=== PATIENT | female | born 1960 | race Caucasian/White ===

== ENCOUNTER 2018-08-24 17:32 | Emergency (ER) | payer OTHER ==
[~2018-08-24] VITALS: Ht 175.3 cm; Wt 90.5 kg
[2018-08-24] MEDS ORDERED: AMLO5TAB6 (18:18)
[2018-08-24] MEDS ORDERED: LISI-672 (18:18)
--- NOTE | 2018-08-24 19:08 | REP ---
Clinical: Trauma . Technique: Axial noncontrast images from the skull base to the thoracic inlet with coronal and sagittal re-formations Findings: Straightening of normal lordosis is nonspecific and may be related to positioning versus pain/spasm. Moderate/early advanced focal degenerative disc osteophyte complex at the C5-6 and C6-7 noted. Alignment is maintained. There is no evidence for acute fracture / compression injury or subluxation. Posterior elements and spinous processes are intact. Paravertebral soft tissues are within normal limits. Impression: Focal degenerative disc osteophyte complex at C5 - C7 No evidence for acute pathology or trauma/injury. Electronically Signed by Jim Sinha MD 08/24/2018 07:01 P
--- NOTE | 2018-08-24 19:19 | REP ---
Clinical: Trauma. Fall . Comparison: None . Findings: The ventricles, sulci, and cisterns are normal in position and appearance. Lassiter-white differentiation is maintained. No acute intracranial hemorrhage, mass/mass effect, pathology or trauma/injury. No evidence for acute infarction. No extra-axial fluid collection. Calvarium is intact. Paranasal sinuses and mastoid air cells are clear. Impression: Normal noncontrast head CT. No evidence for acute intracranial pathology or trauma/injury. Electronically Signed by Jim Sinha MD 08/24/2018 07:12 P
--- NOTE | 2018-08-24 19:27 | REP ---
Clinical: Trauma . Comparison: None . Technique: PA and lateral. Findings: The mediastinum and cardiac silhouette are normal. The lung seo are clear and without acute consolidation, effusion, or pneumothorax. Skeletal structures appear intact without obvious acute trauma. Impression: 1. No acute cardiopulmonary process. Electronically Signed by Jim Sinha MD 08/24/2018 07:18 P
--- NOTE | 2018-08-24 19:29 | REP ---
Clinical: Trauma. Technique: AP, lateral, bilateral oblique views of the right and left wrist . Findings: The carpal bones, surrounding osseous structures, soft tissues, and joint spaces are normal. There is no evidence for acute fracture or dislocation. No subcutaneous emphysema or radiodense foreign body. Impression: No obvious acute fracture or dislocation appreciated. Electronically Signed by Jim Sinha MD 08/24/2018 07:20 P
--- NOTE | 2018-08-24 19:32 | REP ---
Clinical: Trauma. Technique: AP, lateral, bilateral oblique views of the left knee. Findings: There is evidence for a diffuse swelling and suspected suprapatellar effusion. Moderate tricompartmental osteoarthritic degenerative changes are appreciated and limit evaluation. Subtle acute injury/fracture cannot be excluded. If the patient remains symptomatic consider CT for further investigation. Impression: Swelling and suspected suprapatellar effusion. Degenerative changes limit evaluation and subtle injury cannot be excluded. Electronically Signed by Jim Sinha MD 08/24/2018 07:23 P
[2018-08-24 19:35] LABS: HEMATOCRIT 43.8 % (36.0-47.0); HEMOGLOBIN 14.8 g/dl (12.0-15.5); MEAN CORPUSCULAR HEMOGLOBIN 29.1 pg (27.0-33.0); MEAN CORPUSCULAR HGB CONC 33.8 g/dl (32.0-36.5); MEAN CORPUSCULAR VOLUME 86.2 fl (80.0-96.0); PLATELET COUNT, AUTOMATED 232 10^3/uL (150-450); RED BLOOD COUNT 5.08 10^6/uL (4.00-5.40); WHITE BLOOD COUNT 8.1 10^3/uL (4.0-10.0)
[2018-08-24 20:13] LABS: ALBUMIN 3.7 GM/DL (3.2-5.2); ALT/SGPT 25 U/L (12-78); BILIRUBIN,DIRECT < 0.1 MG/DL (0.0-0.2); BILIRUBIN,TOTAL 0.5 MG/DL (0.2-1.0); BLOOD UREA NITROGEN 13 MG/DL (7-18); CALCIUM LEVEL 8.7 MG/DL (8.5-10.1); CARBON DIOXIDE LEVEL 26 MEQ/L (21-32); CHLORIDE LEVEL 108 MEQ/L (98-107); CREATININE FOR GFR 0.71 MG/DL (0.55-1.30); GLOMERULAR FILTRATION RATE > 60.0 (>51); GLUCOSE, FASTING 94 MG/DL (70-100); POTASSIUM SERUM 4.3 MEQ/L (3.5-5.1); SODIUM LEVEL 140 MEQ/L (136-145); TOTAL PROTEIN 6.7 GM/DL (6.4-8.2)
[2018-08-24] MEDS ORDERED: KETOROLAC 30 MG/ML VIAL (J1885) IV ONE (20:15)
[2018-08-24] MEDS ORDERED: CYCLOBENZAPRINE 5MG TABLET PO ONE (21:15)
[2018-08-24] MEDS ORDERED: IBUP-1114 PO ×2 (21:16→21:30)
[2018-08-24] MEDS ORDERED: CYCL5TAB PO ×2 (21:16→21:30)
[2018-08-24 21:35] VITALS: BP 165/75
--- NOTE | 2018-08-25 21:58 | ECGEPIP ---
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
== END 2018-08-24 21:37 | disposition home or self-care (01) ==
LOC: M ED 17:32
DX: S80.02XA Contusion of left knee, initial encounter (principal); S60.211A Contusion of right wrist, initial encounter; S60.212A Contusion of left wrist, initial encounter; I49.3 Ventricular premature depolarization; W01.10XA Fall on same level from slipping, tripping and stumbling with subsequent striking against unspecified object, initial encounter; Y92.89 Other specified places as the place of occurrence of the external cause; Y93.9 Activity, unspecified; Y99.0 Civilian activity done for income or pay; I10 Essential (primary) hypertension; M25.78 Osteophyte, vertebrae; Z79.899 Other long term (current) drug therapy; Z88.1 Allergy status to other antibiotic agents; Z88.8 Allergy status to other drugs, medicaments and biological substances
CPT/HCPCS: 70450; 71046; 72125; 73110; 73564; 80048; 80076; 83735; 84443; 85027; 93005; 96374; 99284; J1885

== ENCOUNTER 2018-12-26 10:36 | Inpatient (IN) | payer OTHER ==
[~2018-12-26] VITALS: Ht 177.8 cm; Wt 130.4 kg
[2018-12-26] VITALS (7 sets, daily range): BP systolic 111–143; BP diastolic 55–93
[2018-12-26] MEDS: lisinopriL 10 MG TAB PO SCH (09:00)
[~2018-12-26 10:36] MED LIST: AMLO5TAB6 PO; CYCL5TAB PO; IBUP-1114 PO; LISI-672 PO
[2018-12-26] MEDS ORDERED: METO1TAB7 PO (10:47)
[2018-12-26] MEDS ORDERED: LORA-674 PO (10:47)
[2018-12-26] MEDS ORDERED: TRAM50TA2 PO (10:47)
[2018-12-26] MEDS ORDERED: APAP325T4 PO (10:47)
[2018-12-26 11:35] LABS: BASO # 0.1 10^3/uL (0.0-0.2); BASO % 0.6 % (0.0-1.0); EOS # 0.1 10^3/uL (0.0-0.50); EOS % 1.4 % (0.0-3.0); HEMATOCRIT 36.2 % (36.0-47.0); HEMOGLOBIN 12.1 g/dl (12.0-15.5); LYMPH # 1.1 10^3/uL (1.5-4.5); LYMPH % 13.4 % (24.0-44.0); MEAN CORPUSCULAR HEMOGLOBIN 29.7 pg (27.0-33.0); MEAN CORPUSCULAR HGB CONC 33.4 g/dl (32.0-36.5); MEAN CORPUSCULAR VOLUME 88.7 fl (80.0-96.0); MONO # 0.4 10^3/uL (0.0-0.8); NEUTROPHILS # 6.7 10^3/uL (1.8-7.7); NEUTROPHILS % 79.2 % (36.0-66.0); PLATELET COUNT, AUTOMATED 209 10^3/uL (150-450); RED BLOOD COUNT 4.08 10^6/uL (4.00-5.40); WHITE BLOOD COUNT 8.4 10^3/uL (4.0-10.0)
[2018-12-26] MEDS: NS 1,000 ML IV SCH ×2 (11:40→20:27)
[2018-12-26 11:47] LABS: INR 1.07; PROTHROMBIN TIME 13.6 SECONDS (11.8-14.0)
[2018-12-26 11:59] LABS: BLOOD UREA NITROGEN 16 MG/DL (7-18); CALCIUM LEVEL 8.6 MG/DL (8.5-10.1); CARBON DIOXIDE LEVEL 28 MEQ/L (21-32); CHLORIDE LEVEL 107 MEQ/L (98-107); CPK CREATINE PHOSPHOKINASE 58 U/L (26-192); CREATININE FOR GFR 0.73 MG/DL (0.55-1.30); GLOMERULAR FILTRATION RATE > 60.0 (>51); GLUCOSE, FASTING 101 MG/DL (70-100); MB/CK RELATIVE INDEX 1.72 (< OR =4); SODIUM LEVEL 142 MEQ/L (136-145); TROPONIN I 0.04 NG/ML (< 0.10)
--- NOTE | 2018-12-26 13:41 | REP ---
Clinical: Right-sided pain status post cardiac ablation with vascular access via the right inguinal canal. Technique: Lassiter scale and color Doppler evaluation using linear high frequency transducer. Findings: Ultrasound examination of the right lower extremity deep venous structures from the common femoral vein to the popliteal vein demonstrates normal compressibility flow and wave patterns in response to respiration and augmentation. There is no evidence for deep venous thrombosis. There is a 2.1 cm suspected pseudoaneurysm adjacent to the proximal superficial femoral artery demonstrating swirling flow and 2.8 mm neck. Impression: No evidence for deep venous thrombosis. Findings suggest 2.1 cm pseudoaneurysm from the proximal superficial femoral artery. Electronically Signed by Jim Sinha MD 12/26/2018 01:33 P
[2018-12-26] MEDS ORDERED: dexameTHASONE 4 MG/ML 1ML VIAL (J1100) As Ordered ONE (15:35)
[2018-12-26] MEDS ORDERED: LIDOCAINE 2% INJ 100 MG/5 ML SDV (FOR ANES.) As Ordered ONE (15:35)
[2018-12-26] MEDS ORDERED: propofoL 200 MG/20 ML VIAL As Ordered ONE (15:35)
[2018-12-26] MEDS ORDERED: ONDANSETRON 4MG/2ML VIAL (J2405) As Ordered ONE (15:35)
--- NOTE | 2018-12-26 15:35 | ECGEPIP ---
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
[2018-12-26] MEDS ORDERED: fentaNYL 100 MCG/2 ML INJECTION (J3010) As Ordered ONE (15:36)
[2018-12-26] MEDS ORDERED: MIDAZOLAM INJ 2 MG/2 ML VIAL (J2250) As Ordered ONE (15:36)
[2018-12-26] MEDS ORDERED: CLOB0.0548 TOP (15:37)
[2018-12-26] MEDS ORDERED: VAGI10TA PV (15:37)
[2018-12-26] MEDS ORDERED: CYCL5TAB PO (15:37)
[2018-12-26] MEDS ORDERED: CLOBETASOL PROPIONATE EMOLLIENT 0.05% CR 60 GM TOP PRN (16:00)
[2018-12-26] MEDS ORDERED: ACETAMINOPHEN TAB 650MG DOSE (2X325MG) PO PRN (16:00)
[2018-12-26] MEDS ORDERED: THROMBIN SOLN 5,000 UNITS VIAL As Ordered ONE ×2 (16:06→16:27)
[2018-12-26] MEDS ORDERED: LIDOCAINE 1% SDV INJ 30 ML VIAL As Ordered ONE (16:10)
[2018-12-26] MEDS ORDERED: BUPIVACAINE HCL 0.5% 30 ML VIAL As Ordered ONE (16:10)
[2018-12-26] MEDS ORDERED: fentaNYL 100 MCG/2 ML INJECTION (J3010) IV PRN (17:00)
[2018-12-26] MEDS ORDERED: NORCO, ANEXSIA 5/325MG TABLET (HYDROcodone/ACETAMINOPHEN) PO PRN (17:00)
[2018-12-26] MEDS ORDERED: ONDANSETRON 4MG/2ML VIAL (J2405) IV PRN (17:00)
[2018-12-26] MEDS ORDERED: LR 1,000 ML IV SCH (17:00)
[2018-12-26] MEDS ORDERED: NORCO, ANEXSIA 5/325MG TABLET (HYDROcodone/ACETAMINOPHEN) As Ordered ONE (17:04)
--- NOTE | 2018-12-26 17:31 | HPE ---
DATE OF ADMISSION: 12/26/2018 CHIEF COMPLAINT: Worsening bruising on right lower extremity after a recent cardiac catheterization for cardiac ablation. HISTORY OF PRESENT ILLNESS: This is a 58-year-old female with past medical history of profound premature ventricular contractions (PVCs) who is status post an ablation procedure this past Friday via cardiac catheterization in [place], who has experienced worse right lower extremity bruising and pain. She reports that she has recently been diagnosed with significant PVCs, up to 1100 per hour. It was decided that she should undergo an ablation procedure and she had that done this past Friday in [place]. Immediately after discharge, she experienced worsening bruising. Apparently, she was kept overnight just for one night after the cardiac catheterization and she already had some bruising, which has worsened. She came here for further evaluation. She has no other complaints. REVIEW OF SYSTEMS: Negative in 14 out of 14 systems except as noted above. PAST MEDICAL HISTORY: 1. History of PVCs status post ablation on Friday. 2. Hypertension. 3. Obstructive sleep apnea (SAIDA). 4. History of methicillin-resistant Staphylococcus aureus (MRSA). PAST SURGICAL HISTORY: She has a history of: 1. Rhinoplasty. 2. Hernia surgery. 3. Hysterectomy. HOME MEDICATIONS; She is on: - Tylenol 650 mg daily as needed for pain - Flexeril 5 mg three times a day as needed for spasms - loratadine 10 mg by mouth daily as needed for allergies - tramadol 50 mg daily as needed for pain - amlodipine 5 mg by mouth at bedtime - clobetasol cream 0.05% topical twice a day as needed for itching - lisinopril 30 mg by mouth daily - metoprolol 50 mg extended release by mouth daily ALLERGIES: She is allergic to CEPHALOSPORINS AND TETRACYCLINE. SOCIAL HISTORY: She lives with her sister. She is . She has one adult child who is 37. No smoking, alcohol, drugs. FAMILY HISTORY: No significant family history of vascular problems. PHYSICAL EXAMINATION: VITAL SIGNS: Currently, she is afebrile to 97.4, blood pressure 128/85, pulse is 63, respiratory rate 16, saturating 95% on room air. GENERAL: She is in no acute distress and breathing comfortably. HEENT EXAM: Oropharynx clear. CARDIOVASCULAR: Regular rate and rhythm. No murmurs, rubs or gallops. LUNGS: Clear to auscultation bilaterally. ABDOMEN: Obese, soft, nontender. EXTREMITIES: She has got extensive right leg ecchymosis from her thigh extending down to near her knee and this area is quite tender to touch. I do not palpate any mass in the inguinal area. No clubbing, cyanosis or edema. NEUROLOGIC: She is alert and oriented times three, follows simple commands. No focal neurologic deficits. SKIN: Ecchymosis, as described above. PSYCHIATRIC: Mood stable. LABORATORIES: Reveal a complete blood count (CBC) which is unremarkable, with a white count of 8.4. Chemistry: Creatinine of 0.73, sodium of 142. IMAGING: She has got a vascular ultrasound which shows no evidence of deep venous thrombosis (DVT), but a 2.1 cm pseudoaneurysm from the proximal superficial femoral artery. ASSESSMENT AND PLAN: This is a 58-year-old female with past medical history of significant premature ventricular contractions (PVCs), now improved status post ablation about a week ago, hypertension, obstructive sleep apnea (SAIDA), who presents with chief complaint of worsening right lower extremity ecchymosis, found to have a pseudoaneurysm. PROBLEMS: 1. Postcardiac catheterization pseudoaneurysm. This is likely secondary to her recent cardiac catheterization. Dr. Olivarez has already been called from the emergency room. He is taking her to the operating room (OR) for thrombin infusion. We will admit her so that vascular surgery can continue to follow this patient. 2. Hypertension. Continue home amlodipine and lisinopril and metoprolol. 3. Deep venous thrombosis (DVT) prophylaxis. I will hold off on DVT prophylaxis for now until postop. 4. Patient is FULL CODE.
[2018-12-26] MEDS: amLODIPine 5 MG TAB PO SCH (21:00)
[2018-12-26] MEDS: METOPROLOL SUCC (TopROL XL) 50MG **XL** TAB PO SCH (22:19)
[2018-12-27] VITALS (7 sets, daily range): BP systolic 127–137; BP diastolic 71–90; O2SAT 93
[2018-12-27 07:23] LABS: ALBUMIN 3.3 GM/DL (3.2-5.2); ALT/SGPT 24 U/L (12-78); BILIRUBIN,TOTAL 0.7 MG/DL (0.2-1.0); BLOOD UREA NITROGEN 13 MG/DL (7-18); CALCIUM LEVEL 8.4 MG/DL (8.5-10.1); CARBON DIOXIDE LEVEL 28 MEQ/L (21-32); CHLORIDE LEVEL 107 MEQ/L (98-107); CREATININE FOR GFR 0.68 MG/DL (0.55-1.30); GLOMERULAR FILTRATION RATE > 60.0 (>51); GLUCOSE, FASTING 123 MG/DL (70-100); MAGNESIUM LEVEL 2.1 MG/DL (1.8-2.4); POTASSIUM SERUM 4.2 MEQ/L (3.5-5.1); SODIUM LEVEL 141 MEQ/L (136-145); TOTAL PROTEIN 6.3 GM/DL (6.4-8.2)
[2018-12-27] MEDS: NS 1,000 ML IV SCH ×2 (07:23→17:35)
[2018-12-27] MEDS: METOPROLOL SUCC (TopROL XL) 50MG **XL** TAB PO SCH (08:41)
[2018-12-27] MEDS: lisinopriL 10 MG TAB PO SCH (08:41)
--- NOTE | 2018-12-27 13:27 | REP ---
Clinical: History of pseudoaneurysm status post thrombin injection. Technique: Real time harrington scale and color Doppler evaluation using linear high frequency transducer. Findings: Directed ultrasound examination of the right groin demonstrates a 2.1 x 1.0 x 2.8 cm hypoechoic avascular collection consistent with the previously noted pseudoaneurysm now appearing thrombosed and without flow. 6.5 x 1.4 x 2.7 cm complex avascular fluid collection is also identified more superficially at the right groin which is consistent with a small hematoma. Impression: 1. Previously noted pseudoaneurysm appears thrombosed and without flow. 2. Superficial hematoma. Electronically Signed by Jim Sinha MD 12/27/2018 01:18 P
--- NOTE | 2018-12-27 18:39 | IPNPDOC ---
Date Seen The patient was seen on 12/27/18. Progress Note SUBJECTIVE: no complaints toerated procedure yesterday well OBJECTIVE PHYSICAL EXAMINATION: VITAL SIGNS: Please see below. GENERAL: NAD Ext: RLE ecchymosis resolving w less TTP #Postcardiac catheterization pseudoaneurysm #hx of PVCs sp ablation #HTN - sp thrombin yesterday - arterial study showed pseudoaneurysm appearing thrombose - Continue home amlodipine and lisinopril and metoprolol. VS, I&O, 24H, Fishbone Vital Signs/I&O Vital Signs Date Time Temp Pulse Resp B/P (MAP) Pulse Ox O2 Delivery O2 Flow Rate FiO2 12/27/18 18:00 97.7 54 15 137/75 (95) 94 12/27/18 05:01 BIPAP/CPAP I&O- Last 24 Hours up to 6 AM 12/27/18 06:00 Intake Total 2410 ml Balance 2410 ml Laboratory Data 24H LABS Laboratory Tests 2 12/27/18 06:41: Anion Gap 6L, Glomerular Filtration Rate > 60.0, Blood Urea Nitrogen 13, Creatinine 0.68, Sodium Level 141, Potassium Level 4.2, Chloride Level 107, Carbon Dioxide Level 28, Calcium Level 8.4L, Aspartate Amino Transf (AST/SGOT) 16, Alanine Aminotransferase (ALT/SGPT) 24, Alkaline Phosphatase 80, Total Bilirubin 0.7, Total Protein 6.3L, Albumin 3.3, Magnesium Level 2.1, Albumin/Globulin Ratio 1.10 CBC/BMP Laboratory Tests 12/27/18 06:41 Calcium Level 8.4 L, Aspartate Amino Transf (AST/SGOT) 16, Alanine Aminotransferase (ALT/SGPT) 24, Alkaline Phosphatase 80, Total Bilirubin 0.7, Total Protein 6.3 L, Albumin 3.3 MORIAH HAYDEN MD Dec 27, 2018 18:39
[2018-12-27] MEDS: amLODIPine 5 MG TAB PO SCH (20:39)
[2018-12-28 00:40] VITALS: O2SAT 99
[2018-12-28] MEDS: NS 1,000 ML IV SCH ×2 (03:35→12:51)
[2018-12-28 05:33] LABS: HEMATOCRIT 29.7 % (36.0-47.0); MEAN CORPUSCULAR HEMOGLOBIN 29.1 pg (27.0-33.0); MEAN CORPUSCULAR VOLUME 88.1 fl (80.0-96.0); PLATELET COUNT, AUTOMATED 196 10^3/uL (150-450); RED BLOOD COUNT 3.37 10^6/uL (4.00-5.40); WHITE BLOOD COUNT 7.4 10^3/uL (4.0-10.0)
[2018-12-28 05:38] LABS: HEMOGLOBIN 9.8 g/dl (12.0-15.5)
[2018-12-28 05:55] LABS: BLOOD UREA NITROGEN 15 MG/DL (7-18); CALCIUM LEVEL 8.1 MG/DL (8.5-10.1); CARBON DIOXIDE LEVEL 25 MEQ/L (21-32); CHLORIDE LEVEL 112 MEQ/L (98-107); CREATININE FOR GFR 0.64 MG/DL (0.55-1.30); GLOMERULAR FILTRATION RATE > 60.0 (>51); GLUCOSE, FASTING 98 MG/DL (70-100); POTASSIUM SERUM 3.9 MEQ/L (3.5-5.1); SODIUM LEVEL 142 MEQ/L (136-145)
[2018-12-28 06:00] VITALS: BP 131/71
[2018-12-28 08:43] VITALS: BP 136/82
[2018-12-28] MEDS: lisinopriL 10 MG TAB PO SCH (08:43)
[2018-12-28] MEDS: METOPROLOL SUCC (TopROL XL) 50MG **XL** TAB PO SCH (08:44)
[2018-12-28 10:00] VITALS: BP 121/71
--- NOTE | 2018-12-28 13:27 | DS.PDOC ---
Discharge Summary General Date of Admission Dec 26, 2018 at 15:53 Date of Discharge Dec 28 2018 Attending Physician: MORIAH HAYDEN MD Specialist/Consultants Involve: Aurelio Olivarez MD Discharge Summary PROCEDURES PERFORMED DURING STAY: thrombin injection on 12/26/18 ADMITTING DIAGNOSES: 1. pseudoaneurysm DISCHARGE DIAGNOSES: 1. pseudoaneurysm sp thrombin injection 2. Hx of PVCs sp pacemaker COMPLICATIONS/CHIEF COMPLAINT: Pseudoaneurysm Femoral Artery. HISTORY OF PRESENT ILLNESS: This is a 58-year-old female with past medical history of profound premature ventricular contractions (PVCs) who is status post an ablation procedure this past Friday via cardiac catheterization in [place], who has experienced worse right lower extremity bruising and pain. She reports that she has recently been diagnosed with significant PVCs, up to 1100 per hour. It was decided that she should undergo an ablation procedure and she had that done this past Friday in [place]. Immediately after discharge, she experienced worsening bruising. Apparently, she was kept overnight just for one night after the cardiac catheterization and she already had some bruising, which has worsened. She came here for further evaluation. She has no other complaints. HOSPITAL COURSE: #Postcardiac catheterization pseudoaneurysm #hx of PVCs sp ablation #HTN - sp thrombin 12/26/18 - arterial study showed pseudoaneurysm appearing thrombose - Continue home amlodipine and lisinopril and metoprolol. DISCHARGE MEDICATIONS: Please see below. ALLERGIES: Please see below. PHYSICAL EXAMINATION ON DISCHARGE: VITAL SIGNS: Please see below. GENERAL: NAD SKIN: improving ecchymosis from the right groin extending down towards kneww NEUROLOGICAL EXAMINATION: no focal neuro deficits, moves all extremities equaly LABORATORY DATA: Please see below. PROGNOSIS: good ACTIVITY: As tolerated DIET: regular DISCHARGE PLAN: home. Follow w PMD and Dr Olivarez DISPOSITION: home DISCHARGE INSTRUCTIONS: 1. Primary Care Doctor 2. Dr Olivarez, vascular ITEMS TO FOLLOWUP ON OUTPATIENT: 1. Primary Care Doctor 2. Dr Olivarez, vascular DISCHARGE CONDITION: Stable TIME SPENT ON DISCHARGE: Greater than 30 minutes. Vital Signs/I&Os Vital Signs Date Time Temp Pulse Resp B/P (MAP) Pulse Ox O2 Delivery O2 Flow Rate FiO2 12/28/18 10:00 97.7 61 17 121/71 (88) 96 12/28/18 00:40 Room Air I&O- Last 24 Hours up to 6 AM 12/28/18 06:00 Intake Total 2280 ml Balance 2280 ml Laboratory Data Labs 24H Laboratory Tests 2 12/28/18 05:14: Nucleated Red Blood Cells % (auto) 0.0, Anion Gap 5L, Glomerular Filtration Rate > 60.0, Blood Urea Nitrogen 15, Creatinine 0.64, Sodium Level 142, Potassium Level 3.9, Chloride Level 112H, Carbon Dioxide Level 25, Calcium Level 8.1L CBC/BMP Laboratory Tests 12/28/18 05:14 Red Blood Count 3.37 L, Mean Corpuscular Volume 88.1, Mean Corpuscular Hemoglobin 29.1, Mean Corpuscular Hemoglobin Concent 33.0, Red Cell Distribution Width 12.9, Calcium Level 8.1 L Discharge Medications Scheduled Amlodipine Besylate (Amlodipine Besylate) 5 Mg Tab, 5 MG PO QHS, (Reported) Estradiol (Vagifem) 10 Mcg Tablet, 10 MCG PV 2XW, (Reported) DOES NOT USE ON SPECIFIC DAYS Lisinopril (Lisinopril) 30 Mg Tab, 30 MG PO DAILY, (Reported) Metoprolol Succinate (Metoprolol Succinate) 50 Mg Tab.er.24h, 50 MG PO DAILY, (Reported) Scheduled PRN Acetaminophen (Acetaminophen) 325 Mg Tablet, 650 MG PO TID PRN for PAIN / FEVER, (Reported) Clobetasol Propionate/Emoll (Clobetasol Emollient 0.05% Crm) 0.05% 15GM Cream..g., 1 DOSE TOP BID PRN for ITCHING, (Reported) APPLY TO LABIA Cyclobenzaprine HCl (Cyclobenzaprine HCl) 5 Mg Tablet, 5 MG PO TID PRN for SPASMS, (Reported) Loratadine (Loratadine) 10 Mg Tablet, 10 MG PO DAILY PRN for ALLERGIES, (Reported) Tramadol HCl (Tramadol HCl) 50 Mg Tablet, 50 MG PO DAILY PRN for PAIN, (Reported) Allergies Coded Allergies: Cephalosporins (Verified Allergy, Mild, rash, 08/24/18) tetracycline (Verified Allergy, Mild, hives, 08/24/18) MORIAH HAYDEN MD Dec 28, 2018 13:27
--- NOTE | 2018-12-28 14:34 | IPNPDOC ---
Date Seen The patient was seen on 12/28/18. Progress Note Vascular Surgery Dr Olivarez HPI: This is a 58-year-old female with past medical history of profound premature ventricular contractions (PVCs) who is status post an ablation procedure this past Friday via cardiac catheterization in [place], who has experienced worse right lower extremity bruising and pain. She had increased bruising, and came here for further evaluation. The pt was found to have Rt femoral pseudoaneurysm, vascular surgery was consulted. Now s/p thrombin injection as per Dr Olivarez. Denies any fevers, chills, weakness, fatigue, Headache, Chest Pain, Shortness of breath, cough, palpitations, abdominal pain, N/V/D or changes in bowel or bladder habits. PE: GEN: 58yoF, appears stated age. No acute distress. Alert and oriented x 3. HEENT: Normocephalic, atraumatic. Conjunctiva without injection. Moist mucous membranes. CHEST: Regular rate and rhythm, +S1, +S2 LUNGS: Clear to auscultation bilaterally. No wheezes, rales, or rhonchi. Breathing appears symmetric and easy. ABD: Round, soft, non-tender, non-distended. +Bowel sounds throughout. EXT: Pulses 2+ bilaterally dorsalis pedis and radial. No lower extremity edema appreciated. SKIN: [place], dry, warm. Capillary refill <2sec. Ecchymosis noted around Rt groin and hip areas. NEURO: Alert and oriented x 3. Cranial nerves III-XII are intact. No focal deficits appreciated. A&P: 1. Rt femoral pseudoaneurysm, s/p thrombin injection 12/26/[address] Olivarez. US 1. Previously noted pseudoaneurysm appears thrombosed and without flow. 2. Superficial hematoma. Electronically Signed by Jim Sinha MD 12/27/2018 01:18 P Off work until FU appt with Vascular Surgery. Outpt FU with Vascular surgery 12/30/28. Monitor. Tylenol as needed. VS, I&O, 24H, Fishbone Vital Signs/I&O Vital Signs Date Time Temp Pulse Resp B/P (MAP) Pulse Ox O2 Delivery O2 Flow Rate FiO2 12/28/18 10:00 97.7 61 17 121/71 (88) 96 12/28/18 00:40 Room Air I&O- Last 24 Hours up to 6 AM 12/28/18 05:59 Intake Total 2580 ml Balance 2580 ml Laboratory Data 24H LABS Laboratory Tests 2 12/28/18 05:14: Nucleated Red Blood Cells % (auto) 0.0, Anion Gap 5L, Glomerular Filtration Rate > 60.0, Blood Urea Nitrogen 15, Creatinine 0.64, Sodium Level 142, Potassium Level 3.9, Chloride Level 112H, Carbon Dioxide Level 25, Calcium Level 8.1L CBC/BMP Laboratory Tests 12/28/18 05:14 Red Blood Count 3.37 L, Mean Corpuscular Volume 88.1, Mean Corpuscular H emoglobin 29.1, Mean Corpuscular Hemoglobin Concent 33.0, Red Cell Distribution Width 12.9, Calcium Level 8.1 L Savannah Wells Dec 28, 2018 14:34
--- NOTE | 2019-01-07 21:28 | RO ---
DATE OF PROCEDURE: 12/26/2018 PREOPERATIVE DIAGNOSIS: Right femoral pseudoaneurysm. POSTOPERATIVE DIAGNOSIS: Right femoral pseudoaneurysm. PROCEDURE: Ultrasound-guided right femoral pseudoaneurysm thrombin injection. SURGEON: Dr. Concha Olivarez GRINDER SET UP OPERATOR CENTERLESS: None INDICATION: The patient is a 58-year-old female who underwent an intervention through her right femoral artery for her cardiac ablation and now has a pseudoaneurysm in the right femoral artery. The patient will undergo thrombin injection. Risks, benefits, and alternative treatment options were discussed with the patient. ANESTHESIA: Local Monitored anesthesia care (MAC). ESTIMATED BLOOD LOSS: Minimal. IV FLUIDS: 100 mL COMPLICATIONS: None. DRAINS: None. SPECIMENS: None. IMPLANTS: None. DESCRIPTION OF PROCEDURE: The patient was taken to the operating room, placed supine on the operating room table and then prepped and draped in a standard surgical fashion. Ultrasound was used to identify the right femoral pseudoaneurysm, which was then injected with thrombin under ultrasound guidance with no flow noted in the pseudoaneurysm at the completion of the injection. Manual compression was applied for hemostasis. Dressings were then applied. The patient tolerated the procedure well. All instrument, sponge and needle counts were correct at the end of the case. There were no complications. Dr. Olivarez was present for and directed the entire case. The patient was transferred to the recovery room and subsequently to the floor in stable condition.
== END 2018-12-28 14:08 | disposition home or self-care (01) | DRG 316 ==
LOC: M ED 10:36 → M ED INP 15:22 → OBSVTOIN 15:53 → M MSPAV 17:25
PROVIDERS: ADMIT Surgery Vascular Surgery; ATTEND Surgery Vascular Surgery
DX: I97.89 Other postprocedural complications and disorders of the circulatory system, not elsewhere classified (principal); I72.4 Aneurysm of artery of lower extremity; I10 Essential (primary) hypertension; G47.33 Obstructive sleep apnea (adult) (pediatric); Z86.14 Personal history of Methicillin resistant Staphylococcus aureus infection; Z79.891 Long term (current) use of opiate analgesic; Z79.899 Other long term (current) drug therapy; Z88.1 Allergy status to other antibiotic agents

== ENCOUNTER → 2020-03-21 | Outpatient (CLI) | payer OTHER ==
[~2020-03-21] MED LIST changes: +AMLO1TAB24 PO; -AMLO5TAB6 PO; +APAP325T4 PO; +CLOB0.0548 TOP; -LISI-672 PO; +LISI30TA4 PO; +LORA-674 PO; +METHACHOLINE KIT (J7674) INH ONE; +METO1TAB7 PO; +TRAM50TA2 PO; +VAGI10TA PV
--- NOTE | 2020-03-21 10:24 | PFTRPT ---
Height: 70.00 Inches Weight: 298.00 Lbs BSA: 2.47 Diagnosis: R06.02 DATE: 03/21/2020 ORDERED BY: Viviane Malhotra RN, ANP QUALITY: Study of excellent technical quality. PROCEDURE: Under protocol, methacholine was administered. At a dose of 2.5 mg or 13.875 CDUs, a 25% decline of the FEV1 was noted. PC of 0.79 is significant. Flow rates did return to baseline post-bronchodilator administration. IMPRESSION: Positive methacholine challenge study. MTDD
== END ==
LOC: M CARPUL 09:37
PROVIDERS: ATTEND Nurse Practitioner Adult Health
DX: R06.02 Shortness of breath (principal)
CPT/HCPCS: 94070; J7674

== ENCOUNTER 2021-09-19 08:26 | Day surgery (SDC) | payer OTHER ==
[~2021-09-19] VITALS: Ht 177.8 cm; Wt 121.6 kg
[~2021-09-19 08:26] MED LIST changes: +ADVA230A INH; +B-1225002 PO; +CIDA500T2 PO; +CINN500C15 PO; +GARC500T PO; -METHACHOLINE KIT (J7674) INH ONE; +METO1TAB87 PO; +MONT10TA97 PO; +NS 1,000 ML IV ONE; +PREG100C PO; +PROAAER10 INH; +RA B1TAB7 PO; +RA M500C PO; +TUME1CAP PO; +VITA100093 PO; +VITA400T26 PO; +VITMTA PO; +ZINC1TAB2 PO
[2021-09-19] MEDS ORDERED: LIDOCAINE 2% 100MG/5ML SDV (FOR ANES.) As Ordered ONE (08:37)
[2021-09-19] MEDS ORDERED: propofoL 500 MG/50 ML VIAL As Ordered ONE (08:38)
[2021-09-19] MEDS ORDERED: fentaNYL 100 MCG/2 ML INJECTION As Ordered ONE (08:38)
[2021-09-19 10:40] VITALS: BP 99/55
== END 2021-09-19 11:06 | disposition home or self-care (01) ==
LOC: M OPP 08:26
PROVIDERS: ATTEND Internal Medicine Gastroenterology
DX: Z12.11 Encounter for screening for malignant neoplasm of colon (principal); K57.30 Diverticulosis of large intestine without perforation or abscess without bleeding; K64.0 First degree hemorrhoids; B37.81 Candidal esophagitis; Z01.818 Encounter for other preprocedural examination; R12 Heartburn; Z79.51 Long term (current) use of inhaled steroids; Z79.52 Long term (current) use of systemic steroids; Z79.899 Other long term (current) drug therapy; Z88.1 Allergy status to other antibiotic agents; Z91.030 Bee allergy status; Z98.84 Bariatric surgery status
CPT/HCPCS: 43239; 45378; 88305; J3010

== ENCOUNTER → 2021-10-18 | Outpatient (CLI) | payer OTHER ==
[~2021-10-18] MED LIST changes: -NS 1,000 ML IV ONE
== END ==
LOC: M SOG 14:12
PROVIDERS: ATTEND Orthopaedic Surgery Adult Reconstructive Orthopaedic Surgery
DX: M17.12 Unilateral primary osteoarthritis, left knee (principal)

== ENCOUNTER 2021-11-20 11:30 | Day surgery (SDC) | payer OTHER ==
[~2021-11-20] VITALS: Ht 177.8 cm; Wt 122.9 kg
[~2021-11-20 11:30] MED LIST changes: +ACETAMINOPHEN 500 MG TAB PO ONE; +CelecoXIB 400 MG CAP PO ONE; +DICL1GEL3 TOP; +GABAPENTIN 300 MG CAP PO ONE; +LIDO5DIS41 TD; +NITR-67 PO; +OMEP40CA4 PO; +ONDANSETRON 4MG/2ML VIAL IV ONE; +PREG50CA PO
[2021-11-20] MEDS ORDERED: LR 1,000 ML IV SCH ×2 (12:00→17:50)
[2021-11-20] MEDS ORDERED: NYST10CR EXT (12:38)
[2021-11-20] MEDS ORDERED: BACTDSTA (12:38)
[2021-11-20] MEDS ORDERED: BIOT1TAB PO (12:38)
[2021-11-20] MEDS ORDERED: CALC315T2 PO (12:38)
[2021-11-20] MEDS ORDERED: EPINEPHrine 1MG/ML INJ 30ML MD-VIAL As Ordered ONE (15:08)
[2021-11-20] MEDS ORDERED: BUPIVACAINE/EPIN 0.5% 30 ML VIAL As Ordered ONE (15:08)
[2021-11-20] MEDS ORDERED: ACETAMINOPHEN 1000MG 100ML IV BTL (OFIRMEV) (J0131 PER 10MG) As Ordered ONE (16:23)
[2021-11-20] MEDS ORDERED: ONDANSETRON 4MG/2ML VIAL As Ordered ONE ×2 (16:24→17:43)
[2021-11-20] MEDS ORDERED: LIDOCAINE 2% 100MG/5ML SDV (FOR ANES.) As Ordered ONE (16:24)
[2021-11-20] MEDS ORDERED: dexameTHASONE 4 MG/ML 1ML VIAL (J1100 PER 1MG) As Ordered ONE (16:24)
[2021-11-20] MEDS ORDERED: fentaNYL 100 MCG/2 ML INJECTION As Ordered ONE (16:25)
[2021-11-20] MEDS ORDERED: MIDAZOLAM INJ 2MG/2ML VIAL (J2250 PER 1MG) As Ordered ONE (16:25)
[2021-11-20] MEDS ORDERED: propofoL 200 MG/20 ML VIAL As Ordered ONE (16:25)
[2021-11-20] MEDS ORDERED: ePHEDrine SULFATE 25 MG/5 ML(5MG/ML) SYRINGE As Ordered ONE (17:26)
[2021-11-20] MEDS ORDERED: METOCLOPRAMIDE INJ 10MG/2ML VIAL (J2765 PER 1) IV PRN (17:50)
[2021-11-20] MEDS ORDERED: HYDROMORPHONE HCL 0.5 MG/ 0.5 ML SYRINGE (J1170 PER 1) IV PRN (17:50)
[2021-11-20] MEDS ORDERED: oxyCODONE 5MG TAB PO PRN (17:50)
[2021-11-20] MEDS ORDERED: fentaNYL 100 MCG/2 ML INJECTION IV PRN (17:50)
[2021-11-20] MEDS ORDERED: diphenhydrAMINE 50MG/ML VIAL (J1200) IV PRN (17:50)
[2021-11-20] MEDS ORDERED: ONDANSETRON 4MG/2ML VIAL IV PRN (17:50)
[2021-11-20] MEDS ORDERED: MEPERIDINE INJ 25 MG/ML VIAL (J2175) IV PRN (17:50)
[2021-11-20 19:20] VITALS: BP 144/70
== END 2021-11-20 19:36 | disposition home or self-care (01) ==
LOC: M SDC 11:30
PROVIDERS: ATTEND Orthopaedic Surgery Adult Reconstructive Orthopaedic Surgery
DX: M23.207 Derangement of unspecified meniscus due to old tear or injury, left knee (principal); J45.909 Unspecified asthma, uncomplicated; J44.9 Chronic obstructive pulmonary disease, unspecified; G47.33 Obstructive sleep apnea (adult) (pediatric); Z88.1 Allergy status to other antibiotic agents
CPT/HCPCS: 29881; J0131; J0171; J1100; J2250; J2405; J3010

== ENCOUNTER → 2022-01-18 | Outpatient (CLI) | payer OTHER ==
[~2022-01-18] MED LIST changes: -ACETAMINOPHEN 500 MG TAB PO ONE; +BACTDSTA; +BIOT1TAB PO; +CALC315T2 PO; -CelecoXIB 400 MG CAP PO ONE; -GABAPENTIN 300 MG CAP PO ONE; +NYST-13 EXT; -ONDANSETRON 4MG/2ML VIAL IV ONE
== END ==
LOC: M RAD 07:27
PROVIDERS: ATTEND Surgery Vascular Surgery
DX: M79.605 Pain in left leg (principal); I83.813 Varicose veins of bilateral lower extremities with pain

== ENCOUNTER → 2022-01-30 | Outpatient (REF) | payer OTHER ==
[2022-01-30 22:41] LABS: APPEARANCE, URINE MANUAL CLOUDY (CLEAR); COLOR, URINE MANUAL YELLOW (YELLOW); PROTEIN, URINE MANUAL 3+ mg/dL (NEGATIVE); SPECIFIC GRAVITY,URINE MANUAL 1.025 (1.002-1.035)
[2022-01-30 22:42] LABS: BILIRUBIN, URINE MANUAL 2+ (NEGATIVE); BLOOD URINE MANUAL POSITIVE (NEGATIVE); GLUCOSE, URINE (UA) MANUAL NEGATIVE (NEGATIVE); KETONE, URINE MANUAL 2+ mg/dL (NEGATIVE); LEUKOCYTE ESTERASE, URINE MAN POSITIVE (NEGATIVE); NITRITE, URINE MANUAL NEGATIVE (NEGATIVE); UROBILINOGEN, URINE MANUAL NORMAL (NORMAL)
[2022-01-30 23:04] LABS: WBC, URINE 40-50 /hpf (0-3)
[2022-01-30 23:05] LABS: BACTERIA, URINE SMALL AMOUNT; SQUAMOUS EPITHELIAL CELL URINE SMALL AMOUNT /hpf (SMALL AMT); TRANSITIONAL EPI CELLS, URINE SMALL AMOUNT /hpf
[2022-01-30 23:07] LABS: AMORPHOUS SEDIMENT, URINE SMALL AMOUNT (NEGATIVE); MUCUS, URINE MOD AMOUNT (NEGATIVE)
== END ==
LOC: M LAB REF 21:29
PROVIDERS: ATTEND Physician Assistant
DX: N39.0 Urinary tract infection, site not specified (principal)

== ENCOUNTER → 2022-03-19 | Outpatient (CLI) | payer OTHER | LOC: M WHC 08:15 | PROVIDERS: ATTEND Student in an Organized Health Care Education/Training Program | DX: Z12.31 Encounter for screening mammogram for malignant neoplasm of breast (principal) ==

== ENCOUNTER → 2022-03-20 | Outpatient (REF) | payer OTHER ==
[2022-03-20 19:50] LABS: APPEARANCE, URINE MANUAL CLOUDY (CLEAR); COLOR, URINE MANUAL YELLOW (YELLOW)
[2022-03-20 19:51] LABS: BILIRUBIN, URINE MANUAL NEGATIVE (NEGATIVE); BLOOD URINE MANUAL POSITIVE (NEGATIVE); GLUCOSE, URINE (UA) MANUAL NEGATIVE (NEGATIVE); KETONE, URINE MANUAL NEGATIVE (NEGATIVE); LEUKOCYTE ESTERASE, URINE MAN POSITIVE (NEGATIVE); NITRITE, URINE MANUAL NEGATIVE (NEGATIVE); PROTEIN, URINE MANUAL NEGATIVE (NEGATIVE); SPECIFIC GRAVITY,URINE MANUAL 1.006 (1.002-1.035); UROBILINOGEN, URINE MANUAL NORMAL (NORMAL)
[2022-03-20 20:03] LABS: BACTERIA, URINE MOD AMOUNT; HYALINE CAST, URINE NONE SEEN /lpf (0-1); SQUAMOUS EPITHELIAL CELL URINE MOD AMOUNT /hpf (SMALL AMT); WBC, URINE TNTC /hpf (0-3)
== END ==
LOC: M LAB REF 16:14
PROVIDERS: ATTEND Physician Assistant
DX: N39.0 Urinary tract infection, site not specified (principal)

== ENCOUNTER → 2022-06-20 | Outpatient (REF) | payer OTHER | LOC: M SFHCRHEU 11:14 | PROVIDERS: ATTEND Internal Medicine | DX: R79.82 Elevated C-reactive protein (CRP) (principal) ==

== ENCOUNTER → 2022-10-01 | Outpatient (CLI) | payer OTHER | LOC: M SOG 08:03 | PROVIDERS: ATTEND Orthopaedic Surgery Hand Surgery | DX: M85.641 Other cyst of bone, right hand (principal) ==

== ENCOUNTER 2023-01-31 06:16 | Day surgery (SDC) | payer OTHER ==
[~2023-01-31] VITALS: Ht 177.8 cm; Wt 82.6 kg
[~2023-01-31 06:16] MED LIST changes: +DICL100G10 TOP; -DICL1GEL3 TOP; +FOLI1TAB11 PO; +LIDOCAINE W/EPINEPHRINE 1% 20ML VIAL XX ONE; +LORA-1041 PO; -LORA-674 PO; -PREG100C PO; +PREG100C2 PO; +SODIUM BICARBONATE 8.4% INJ 50MEQ 50ML VIAL XX ONE
[2023-01-31] MEDS ORDERED: PROA1AER2 IN (06:52)
[2023-01-31] MEDS ORDERED: GALZ50CA PO (06:52)
[2023-01-31] MEDS ORDERED: BACITRACIN OINTMENT 30GM TUBE As Ordered ONE (07:09)
[2023-01-31 08:05] VITALS: BP 131/77; TEMP 96.9; O2SAT 96
== END 2023-01-31 08:32 | disposition home or self-care (01) ==
LOC: M SDC 06:16
PROVIDERS: ATTEND Orthopaedic Surgery Hand Surgery
DX: M67.441 Ganglion, right hand (principal); Z88.1 Allergy status to other antibiotic agents